=== PATIENT | female | born 2000 | race Caucasian/White ===

== ENCOUNTER 2021-04-25 21:47 | Outpatient (CLI) | payer MEDICAID ==
[2021-04-25 22:22] VITALS: BP 97/52
[2021-04-25] MEDS ORDERED: ACETAMINOPHEN 500 MG TAB PO ONE (23:41)
== END 2021-04-25 23:41 | disposition home or self-care (01) ==
LOC: TRG 21:47 → APU 21:51 → TRG 23:41
PROVIDERS: ATTEND Obstetrics & Gynecology
DX: Z34.93 Encounter for supervision of normal pregnancy, unspecified, third trimester (principal); Z3A.40 40 weeks gestation of pregnancy
CPT/HCPCS: 59025; Q0177

== ENCOUNTER 2021-04-26 07:45 | Inpatient (IN) | payer MEDICAID ==
[2021-04-26] MEDS ORDERED: METHYLERGONOVINE MALEATE 0.2 MG/ML VIAL IM PRN (08:14)
[2021-04-26] MEDS ORDERED: TERBUTALINE 1 MG/1 ML INJ SUB-Q PRN (08:14)
[2021-04-26] MEDS ORDERED: OXYTOCIN 10 UNIT/1 ML INJ IM PRN (08:14)
[2021-04-26] MEDS ORDERED: LIDOCAINE (2%) 20 MG/1 ML VIAL 20 ML MDV INFILTRATI ONE (08:14)
[2021-04-26] MEDS ORDERED: CARBOPROST TROMETHAMINE 250 MCG/1 ML INJ IM PRN (08:14)
[2021-04-26] MEDS ORDERED: ACETAMINOPHEN 325 MG TAB PO PRN (08:14)
[2021-04-26] MEDS ORDERED: miSOPROStol 200 MCG TAB PR PRN (08:14)
[2021-04-26] MEDS ORDERED: LOPERAMIDE 2 MG CAP PO PRN (08:14)
[2021-04-26] MEDS ORDERED: fentaNYL 100 MCG/2 ML INJ IV PRN (08:14)
[2021-04-26] MEDS ORDERED: ePHEDrine SULFATE 50 MG/1 ML INJ IV PRN (08:14)
[2021-04-26] MEDS ORDERED: BUTORPHANOL 2 MG/1 ML INJ IV PRN (08:14)
[2021-04-26] MEDS ORDERED: AMPICILLIN/NS 2 GM/100 ML 2 GM/100 ML BAG IV ONE (08:25)
[2021-04-26] MEDS: LACTATED RINGERS 1,000 ML IV SCH ×3 (08:41→14:50)
[2021-04-26] MEDS ORDERED: MINERAL OIL 30 ML ORAL LIQD ONE (08:52)
[2021-04-26] MEDS ORDERED: OXYTOCIN DRIP 30 UNITS/500 ML BAG IV SCH ×3 (09:00→21:59)
[2021-04-26 09:03] LABS: Hematocrit 39.5 % (30.3-42.9); Hemoglobin 13.1 gm/dl (10.1-14.3); Mean Corpuscular HGB Conc 33 % (30-34); Mean Corpuscular Volume 87 fl (79-97); Platelet Count 211 K/mm3 (140-440); Red Blood Count 4.52 M/mm3 (3.65-5.03); Red Cell Distribution Width 16.8 % (13.2-15.2)
--- NOTE | 2021-04-26 09:03 | History and Physical Report ---
History of Present Illness Date of examination: 04/26/21 Date of admission: 04/26/21 Chief complaint: contractions and desires for epidural History of present illness: EDC 04/25/21 negative past medical, surgical, social, and genetic histories Family history of diabetes in her father, and cervical cancer in her mother negative alcohol, drug use, and smoking histories Pt is single NKA and no current medications being taken Past History Past Medical History: no pertinent history, other (see HPI) Past Surgical History: no surgical history, other (see HPI) [employer] History: other (see HPI). denies: herpes Family/Genetic History: diabetes, cancer, other (see HPI) Social history: no significant social history, single, other (see HPI). denies: smoking, alcohol abuse, prescription drug abuse, IV drug use - Obstetrical History Expected Date of Delivery: 04/25/21 Actual Gestation: 40 Week(s) 1 Day(s) : 1 Para: 0 Hx # Term Pregnancies: 0 Number of Pregnancies: 0 Spontaneous Abortions: 0 Induced : 0 Number of Living Children: 0 Medications and Allergies Allergies Allergy/AdvReac Type Severity Reaction Status Date / Time No Known Allergies Allergy Unverified 04/26/21 08:00 Home Medications Medication Instructions Recorded Confirmed Last Taken Type RX: No Known Home Medications [No 04/25/21 04/26/21 Unknown History Reported Home Medications] Active Meds: Active Medications Acetaminophen (Acetaminophen 325 Mg Tab) 650 mg PO Q4H PRN PRN Reason: Pain, Mild (1-3) Butorphanol Tartrate (Butorphanol 2 Mg/1 Ml Inj) 1 mg IV Q2H PRN PRN Reason: Pain, Moderate(4-6) LABOR PAIN Carboprost Tromethamine (Carboprost Tromethamine 250 Mcg/1 Ml Inj) 250 mcg IM ONCE PRN PRN Reason: Uterine Bleeding Ephedrine Sulfate (Ephedrine Sulfate 50 Mg/1 Ml Inj) 10 mg IV Q2M PRN PRN Reason: Hypotension Fentanyl (Fentanyl 100 Mcg/2 Ml Inj) 100 mcg IV Q2H PRN PRN Reason: Pain,Severe (7-10) LABOR PAIN Oxytocin/Sodium Chloride (Pitocin/Ns 30 Unit/500ml) 30 units in 500 mls @ 2 mls/hr IV TITR JAVI; Protocol Lactated Ringer's (Lactated Ringers) 1,000 mls @ 125 mls/hr IV DIRECT JAVI Last Admin: 04/26/21 08:41 Dose: 125 mls/hr Oxytocin/Sodium Chloride (Pitocin/Ns 30 Unit/500ml) 30 units in 500 mls @ 40 mls/hr IV TITR JAVI; Protocol Ampicillin Sodium (Ampicillin/Ns 2 Gm/100 Ml) 2 gm in 100 mls @ 100 mls/hr IV ONCE ONE; Protocol Stop: 04/26/21 09:24 Last Admin: 04/26/21 08:41 Dose: 100 mls/hr Ampicillin Sodium (Ampicillin/Ns 1 Gm/50 Ml) 1 gm in 50 mls @ 100 mls/hr IV Q4HR JAVI; Protocol Loperamide HCl (Loperamide 2 Mg Cap) 2 mg PO ONCE PRN PRN Reason: give with Hemabate Methylergonovine Maleate (Methylergonovine Maleate 0.2 Mg/Ml Vial) 0.2 mg IM ONCE PRN PRN Reason: Uterine Bleeding Mineral Oil (Mineral Oil 30 Ml Oral Liqd) 30 ml PO QHS PRN PRN Reason: Constipation Misoprostol (Misoprostol 200 Mcg Tab) 800 mcg VA ONCE PRN PRN Reason: Uterine Bleeding Oxytocin (Oxytocin 10 Unit/1 Ml Inj) 10 unit IM ONCE PRN PRN Reason: Uterine Bleeding Terbutaline Sulfate (Terbutaline 1 Mg/1 Ml Inj) 0.25 mg SUB-Q ONCE PRN PRN Reason: Hyperstimulation/Hypertonicity Review of Systems All systems: negative Genitourinary: contractions, no vaginal bleeding, no leakage of fluid - Vital Signs Vital signs: Vital Signs Pulse Pulse Ox 79 98 04/26/21 08:06 04/26/21 08:06 Temp Pulse Resp BP Pulse Ox 97.5 F L 82 18 106/72 99 04/26/21 08:10 04/26/21 09:00 04/26/21 08:10 04/26/21 08:10 04/26/21 09:00 - Physical Exam Breasts: Positive: deferred Cardiovascular: Regular rate Lungs: Positive: Normal air movement Abdomen: Positive: normal appearance, soft. Negative: distention, tenderness, guarding Genitourinary (Female): Positive: normal external genitalia, normal perenium Vulva: both: normal Vagina: Positive: normal moisture Uterus: Positive: normal size, normal contour, other (gravid at term) Anus/Rectum: Positive: normal perianal skin, heme negative Extremities: Positive: normal - Obstetrical FHR: auscultation normal, category 1 Uterine Contraction Monitor Mode: External Cervical Dilatation: 8 Cervical Effacement Percentage: 90 station: 0 Uterine Contraction Frequency (min): 2-4 Uterine Contraction Pattern: Regular Uterine Tone Measurement Phase: Resting Results Result Diagrams: 04/26/21 08:20 All other labs normal. GBS POSITIVE Chlamydia negative Gonococcus negative Trich negative labs on 01/09/21: A+ HBsAG negative RPR nonreactive RUBELLA NON-IMMUNE H&H Platelets 261 HIV nonreactive HCV Ab negative Assessment and Plan Pt reports desires for epidural. SVE performed with BBOW, cephalic presentation. RN at bedside. Admission orders in EMR. Pt may have epidural, continuous efm and toco, anticipate . - Patient Problems (1) 40 weeks gestation of Current Visit: Yes Status: Acute (2) Rubella non-immune status, antepartum Current Visit: Yes Status: Acute Plan to address problem: offer vaccine (3) GBS carrier Current Visit: Yes Status: Acute Plan to address problem: Ampicillin q4hrs until delivery
[2021-04-26] MEDS ORDERED: LACTATED RINGERS 250 ML IV SOLN IV ONE (09:38)
[2021-04-26] MEDS ORDERED: diphenhydrAMINE 50 MG/ML VIAL IV PRN (09:38)
[2021-04-26] MEDS ORDERED: NalbUPHINE 10 MG/1 ML INJ IV PRN (09:38)
[2021-04-26] MEDS ORDERED: NALOXONE 2 MG/2 ML INJ IV PRN (09:38)
[2021-04-26] MEDS ORDERED: ONDANSETRON 4 MG/2 ML INJ IV PRN ×3 (09:38→21:59)
--- NOTE | 2021-04-26 09:59 | Anesthesia Consultation ---
Anesthesia Consult and Med Hx Date of service: 04/26/21 - Airway Anesthetic Teeth Evaluation: Good ROM Head & Neck: Adequate Mental/Hyoid Distance: Adequate Mallampati Class: Class II Intubation Access Assessment: Probably Good - Pulmonary Exam CTA: Yes - Cardiac Exam Cardiac Exam: RRR - Pre-Operative Health Status ASA Pre-Surgery Classification: ASA2 Proposed Anesthetic Plan: Epidural - Pulmonary Hx Smoking: No Hx Asthma: No Hx Sleep Apnea: No - Cardiovascular System Hx Hypertension: No Hx Heart Attack/AMI: No Hx Angina: No - Central Nervous System Hx Seizures: No Hx Psychiatric Problems: No - Gastrointestinal Hx Gastroesophageal Reflux Disease: No - Endocrine Hx Renal Disease: No Hx Liver Disease: No Hx Insulin Dependent Diabetes: No Hx Non-Insulin Dependent Diabetes: No Hx Hypothyroidism: No Hx Hyperthyroidism: No - Hematic Hx Anemia: No Hx Sickle Cell Disease: No - Other Systems Hx Alcohol Use: No
[2021-04-26] MEDS ORDERED: AMPICILLIN/NS 1 GM/50 ML 1 GM/50 ML BAG IV SCH (10:00)
--- NOTE | 2021-04-26 10:00 | Progress Note ---
Labor Epidural - Labor Epidural Start Time: 09:45 Stop Time: 10:00 Performed by:: DEBBIE DRUMMOND ([facility]) Procedure: Patient is requesting epidural for labor and pain. H&P, labs were reviewed. Patient IDed, all questions and concerns were answered, and consent was signed. Timeout was performed at bedside. Patient in sitting position. Sterile prep and drape was performed. 3ml of 1% lidocaine skin wheal at L[3]- L [4]. 17-ga uge Tuohy epidural needle was advanced to loss of resistance with air technique 7cm. Negative CSF negative blood. Epidural catheter advanced to [12] centimeters. [negative] Aspiration [negative] test dose. Sterile dressing applied. Patient tolerated procedure.
[2021-04-26] MEDS: ePHEDrine SULFATE 50 MG/1 ML INJ IV PRN ×4 (10:12→18:50)
[2021-04-26] MEDS: fentaNYL-BUPIV 2 MCG/ML-0.125% 200 MCG/100 ML BAG EPIDURAL SCH ×2 (11:40→15:41)
[2021-04-26] MEDS ORDERED: SODIUM CHLORIDE 0.9% 1000 ML 1,000 ML ONE (14:47)
--- NOTE | 2021-04-26 15:01 | Event Note ---
Date: 04/26/21 FHT's strip reviewed and discussed with pt and RN at bedside. SVE performed and unchanged from 1100 assessment. Per RN, possible SROM of forebag with meconium stained fluid. POC d/w pt with risks vs benefits of augmentation with Pitocin, AROM of bulging bag, placement of internal monitors, and administration of amnioinfusion. Questions encouraged. No questions verbalized. Pt verbalizes understanding and agrees to POC. AROM performed, moderate meconium stained fluid noted, internal monitors placed without difficulty. D/w pt risks with meconium and expectations post delivery. Dr Antonio made aware. T's strip reviewed by . Orders received for informed consent of pt; delivery with risks discussed with pt. Questions encouraged. No questions or concerns verbalized. Pt verbalizes understanding. Pitocin turned off. Orders placed for preop.
[2021-04-26] MEDS ORDERED: BICITRA ORAL LIQD 30ML ONE (15:16)
[2021-04-26] MEDS ORDERED: METOCLOPRAMIDE 10 MG/2 ML INJ ONE (15:17)
[2021-04-26] MEDS ORDERED: NALOXONE 0.4 MG/1 ML INJ IV PRN ×2 (15:18→21:59)
[2021-04-26] MEDS ORDERED: HYDROmorphone 1 MG/1 ML INJ IV PRN (15:18)
[2021-04-26] MEDS ORDERED: PROMETHAZINE 25 MG RECT SUPP PR PRN (15:18)
[2021-04-26] MEDS ORDERED: PROMETHAZINE 25 MG TAB PO PRN (15:18)
--- NOTE | 2021-04-26 15:19 | Anesthesia Day of Surgery ---
Anesthesia Day of Surgery - Day of Surgery Patient Examined: Yes Patient H&P Reviewed: Yes Patient is NPO: Yes Beta Blockers: No Cardiac Clearance: No Pulmonary Clearance: No Juan's Test: N/A
[2021-04-26] MEDS ORDERED: LACTATED RINGERS 1,000 ML IV SCH (16:00)
[2021-04-26] MEDS ORDERED: METOCLOPRAMIDE 10 MG/2 ML INJ IV ONE (16:00)
[2021-04-26] MEDS ORDERED: BICITRA ORAL LIQD 30ML PO ONE (16:00)
[2021-04-26] MEDS ORDERED: ceFAZolin/Water 2 GM/20 ML 2 GM/20 ML SYRINGE IV NR (16:00)
[2021-04-26] MEDS ORDERED: FAMOTIDINE 20 MG/2 ML INJ IV ONE (16:00)
--- NOTE | 2021-04-26 16:24 | Event Note ---
Date: 04/26/21 Indication for section discussed. Patient informed the risks of the surgery include bleeding possibly bleeding heavy enough to require blood transfusion, infection possible damage to bowel bladder ureter. All questions answered. Patient agrees to proceed
[2021-04-26] MEDS ORDERED: SODIUM CHLORIDE 0.9% IRR 1,500 ML BOTTLE IR ONE (16:30)
[2021-04-26] MEDS ORDERED: WATER FOR IRRIG STERILE 1,500 ML BOTTLE IR ONE (16:31)
--- NOTE | 2021-04-26 17:40 | Operative Report ---
Operative Report Operative Report: Date of procedure: April 26, 2021 Pre-operative diagnosis: Intrauterine at [address] ained fluid arrest of dilatation and descent with nonreassuring heart tracing Post-operative diagnosis: Same Procedure name(s): Primary low-transverse section Surgeon: Tyshawn Antonio MD Book Reviewer: JERI Anesthesia: Epidural EBL: Quantitative blood loss equals 784 cc Complications: None Findings: Patient with a normal uterus tubes and ovaries bilaterally. Male weight 6 pounds 13 ounces Apgars 8 at 1 minute and 9 at 5 minutes Specimen(s): None Procedure: The patient was brought to the operating room. Her epidural was dosed was placed without any complications. She was then placed in left lateral tilt. Prepped and draped in the usual sterile manner. After testing for adequate anesthesia level, a Pfannenstiel incision was made. This incision was taken down to the fascia. The fascia was then nicked in the midline. This incision was extended out laterally with Purdy scissors. The fascia was then sharply and bluntly from the underlying rectus muscles. The rectus muscles were bluntly and sharply . The peritoneum was then entered with the pig machine operator helper's fingers. This incision was spread vertically with care not to damage the bladder below. The Luis E self-retaining tractor was then placed without any difficulty. The bladder flap was then formed sharply and bluntly with Metzenbaum scissors. A transverse incision was made in lower uterine segment. This incision was extended laterally with the operators fingers. The amniotic sac was then entered bluntly with the pig machine operator helper's fingers. The was delivered from the vertex position. Bulb suction on the mother's abdomen. Cord was double clamped and cut. The was then passed to the nursery personnel who were in attendance. The above scores were given by the nursery personnel. The placenta was then bluntly removed. The uterus was then externalized and wiped clean the remaining products. The uterine incision was closed in layers. The first incision was closed in a locking manner using 0 Vicryl. This was followed by imbricating stitch also with 0 Vicryl. This closure was hemostatic after additional [id number] suture. The bladder flap was copiously irrigated and found to be hemostatic. The pelvis was copiously irrigated and found to be hemostatic. The uterus was then placed back to the patient's abdomen. Surgicel was placed along the uterine closure line. The retractors were removed. The rectus muscles were inspected and found to be hemostatic. The fascia was then closed in a running manner using 0 Vicryl. This incision was hemostatic irrigation Bovie. The skin was reapproximated with 4-0 Vicryl subcuticularly. Dermabond in place along the skin closure. The patient tolerated procedure well. Her urine was clear. The infant was admitted to the well baby nursery. The patient was accompanied to recovery room in good condition. Instrument count correct times 3.
[2021-04-26] MEDS ORDERED: MAGNESIUM HYDROXIDE (MOM) ORAL LIQD UDC PO PRN (21:59)
[2021-04-26] MEDS ORDERED: SIMETHICONE 80 MG CHEW TAB PO PRN (21:59)
[2021-04-26] MEDS ORDERED: HYDROCORTISONE 25 MG RECTAL SUPP PR PRN (21:59)
[2021-04-26] MEDS ORDERED: HYDROcodone/ACETAMINOPHEN 5-325 MG TAB PO PRN (21:59)
[2021-04-26] MEDS ORDERED: WITCH HAZEL/ GLYCERIN PAD TP PRN (21:59)
[2021-04-26] MEDS ORDERED: D5W/LACTATED RINGERS 1,000 ML IV SCH (21:59)
[2021-04-26] MEDS ORDERED: LANOLIN/ZINC/DIMETHICONE (LANSINOH) 7 GM TP PRN (21:59)
[2021-04-26] MEDS ORDERED: SENNOSIDES 8.6 MG TAB PO PRN (21:59)
[2021-04-26] MEDS ORDERED: MINERAL OIL 30 ML ORAL LIQD PO PRN (22:00)
[2021-04-26] MEDS: KETOROLAC 30 MG/1 ML INJ IV SCH (22:30)
[2021-04-27] MEDS: ceFAZolin/NS 1 GM/50 ML 1 GM/50 ML BAG IV SCH ×2 (00:21→08:23)
[2021-04-27] MEDS: KETOROLAC 30 MG/1 ML INJ IV SCH ×2 (05:29→10:16)
[2021-04-27] MEDS ORDERED: MEASLES, MUMPS & RUBELLA 12,500 UNIT/0.5 ML VACCINE SUB-Q ONE (06:00)
[2021-04-27] MEDS ORDERED: TETANUS,DIPH,PERTUSS(ACELL) VACCINE 0.5 ML SYRINGE IM ONE (06:00)
[2021-04-27 07:22] LABS: Hematocrit 27.4 % (30.3-42.9); Hemoglobin 9.4 gm/dl (10.1-14.3)
[2021-04-27] MEDS: PRENATAL VIT27-FE FUMARATE-FOLIC ACID VIT TAB PO SCH (10:16)
[2021-04-27] MEDS: FERROUS SULFATE 325 MG TAB PO SCH (10:16)
--- NOTE | 2021-04-27 13:21 | Progress Note ---
Assessment and Plan VSSAF; postop H&H 11/18 s/p acute blood loss. Pt reports ambulating, eating, and voiding without difficulties. Incentive spirometer at bedside, pt encouraged in postoperative pathway expectations. Discharge precautions reviewed. Anticipate stable d/c home tomorrow. - Patient Problems (1) Rubella non-immune status, antepartum Current Visit: Yes Status: Acute Plan to address problem: vaccine ordered (2) delivery delivered Current Visit: Yes Status: Acute Subjective - Subjective Date of service: 04/27/21 Principal diagnosis: POD#1 Patient reports: appetite normal, voiding normally, pain well controlled, ambulating normally : doing well Objective - Vital Signs Latest vital signs: Vital Signs Temp Pulse Resp BP BP Pulse Ox Pulse Ox 04/27/21 08:31 98.5 F 70 20 93/54 97 04/27/21 08:25 97 04/27/21 05:30 98 04/27/21 04:55 97.9 F 84 18 104/54 97 04/27/21 04:15 98 04/27/21 02:20 98 04/27/21 00:40 98.2 F 57 L 18 98/52 97 04/27/21 00:19 98 04/26/21 22:30 98 04/26/21 21:00 98.2 F 96 H 18 109/56 98 99 04/26/21 19:56 97 04/26/21 18:45 88 19 102/55 96 04/26/21 18:25 81 22 97/52 96 04/26/21 18:10 76 17 93/53 96 04/26/21 17:55 81 18 93/53 96 04/26/21 17:40 76 19 101/53 97 04/26/21 17:35 63 17 106/66 04/26/21 17:30 87 18 94/57 04/26/21 17:25 98.5 F 75 15 97/56 04/26/21 15:25 100 H 99 04/26/21 15:20 137 H 97 04/26/21 15:18 84 107/63 04/26/21 15:15 135 H 98 04/26/21 15:10 119 H 97 04/26/21 15:05 121 H 96 04/26/21 15:02 134 H 102/57 04/26/21 15:00 97.4 F L 120 H 97 04/26/21 14:55 135 H 97 04/26/21 14:50 77 97 04/26/21 14:47 121 H 111/56 04/26/21 14:45 137 H 96 04/26/21 14:42 99 H 115/69 04/26/21 14:40 120 H 98 04/26/21 14:35 129 H 98 04/26/21 14:32 123 H 86/47 04/26/21 14:30 88 98 04/26/21 14:25 81 98 04/26/21 14:20 85 116/68 98 04/26/21 14:18 120 H 79/43 04/26/21 14:15 72 97 04/26/21 14:10 76 97 04/26/21 14:05 144 H 96 04/26/21 14:02 112 H 98/55 04/26/21 14:00 94 H 97 04/26/21 13:55 130 H 98 04/26/21 13:53 105 H 109/59 04/26/21 13:50 117 H 96 04/26/21 13:47 113 H 87/50 04/26/21 13:45 78 97 04/26/21 13:40 120 H 96 04/26/21 13:35 129 H 97 04/26/21 13:34 88 103/59 04/26/21 13:30 81 97 04/26/21 13:25 107 H 97 04/26/21 13:20 99 H 97 04/26/21 13:17 134 H 95/54 Intake and Output 04/26/21 04/27/21 04/27/21 23:59 07:59 15:59 Intake Total 1720 410 120 Output Total 275 1500 Balance 1445 -1090 120 Intake: IV 1600 50 ANCEF/NS 1 GM/50 ML 1 gm 50 In 50 ml @ 100 mls/hr IV Q8H [facility] Rx#:[id number] Oral 120 360 120 Output: Urine 275 1500 Indwelling Catheter 1000 Void 500 Other: Total, Intake Amount 120 120 120 Total, Output Amount 500 # Voids Void 1 - Exam Breasts: Present: normal Cardiovascular: Present: Regular rate Lungs: Present: Normal air movement Abdomen: Present: normal appearance, soft. Absent: distention, tenderness, guarding Uterus: Present: normal, firm Extremities: Present: normal Incision: Present: normal, dry, intact - Labs Labs: Abnormal lab results 04/27/21 Range/Units 07:02 Hgb 9.4 L D (10.1-14.3) gm/dl Hct 27.4 L D (30.3-42.9) %
--- NOTE | 2021-04-27 15:34 | Post Anesthesia Evaluation ---
- Post Anesthesia Evaluation Patient Participated: Yes Airway Patent: Yes Stable Respiratory Function: Yes Nausea/Vomiting: No Temp > 96.8F: Yes Pain Manageable: Yes Adequeate Hydration: Yes Anesthesia Complications: No Block Receding Appropriately: Yes Patient on Ventilator: No
[2021-04-27] MEDS: IBUPROFEN 600 MG TAB PO PRN (18:15)
[2021-04-27 19:40] LABS: Hematocrit 25.8 % (30.3-42.9)
[2021-04-28] MEDS: IBUPROFEN 600 MG TAB PO PRN ×3 (00:04→12:52)
--- NOTE | 2021-04-28 08:29 | Discharge Summary ---
Providers - Providers Date of Admission: 04/26/21 07:46 Date of discharge: 04/28/21 Attending physician: KAYLA FRANCO 04/26/21 21:59 Consult to Geothermal Production Manager [CONS] Routine Reason For Exam: Primary care physician: KAYLA FRANCO Hospitalization Reason for admission: active labor Delivery: Procedure: primary low transverse Episiotomy: none Laceration: none Incision: normal, dry, intact Other procedures: none complications: none Discharge diagnosis: IUP at term delivered baby: male Pertinent studies: Does not want circumcision at this time. Hospital course: S: Pt doing well. Voiding, ambulating, and passing flatus okay. O: VSS. Adequate I&O's. H/H 9.0/25.8, asymptomatic anemia from delivery. Incision open to air, intact, no s/sx of infection and no drainage noted. A: 20 y.o. s/p primary . In good condition. P: Discharge home with instructions. Pt to schedule incision check in the office in 1 week. Condition at discharge: Good Disposition: 01 HOME / SELF CARE / HOMELESS Plan - Discharge Medications Prescriptions: Docusate Sodium [Colace] 100 mg PO BID PRN #60 capsule PRN Reason: Constipation Lidocain2.5%/Prilocai2.5% [Emla] 5 gm TP ONCE #1 tube Ferrous Sulfate [Feosol 325 MG tab] 325 mg PO QDAY #30 tablet Ibuprofen [Motrin] 800 mg PO TID PRN #30 tablet PRN Reason: Pain oxyCODONE /ACETAMINOPHEN [Percocet 5/325 mg] 1 tab PO Q6HR PRN #20 tablet PRN Reason: Pain Vit-Fe Fumar-FA [ Vitamin] 1 tab PO QDAY #90 tablet - Provider Discharge Summary Activity: routine, no sex for 6 weeks, no heavy lifting 4 weeks, no strenuous exercise Diet: routine Instructions: routine Additional instructions: [] Smoking cessation referral if applicable(refer to patient education folder for contact #) [] Refer to [facility] Booklet Call your doctor immediately for: * Fever > 100.5 * Heavy vaginal bleeding ( >1 pad per hour) * Severe persistent headache * Shortness of breath * Reddened, hot, painful area to leg or breast * Drainage or odor from incision. * Keep incision clean and dry at all times and follow doctor's instructions regarding bathing/showering - Follow up plan Follow up: KAYLA FRANCO MD [Primary Care Provider] - 7 Days (Congratulations on the of your baby boy!! Please schedule your incision check in the office in 1 week. Should you have any questions or concerns after discharge, please call the office at [phone]. ) Forms: [facility] Discharge Summary
[2021-04-28] MEDS: PRENATAL VIT27-FE FUMARATE-FOLIC ACID VIT TAB PO SCH (10:16)
[2021-04-28] MEDS: FERROUS SULFATE 325 MG TAB PO SCH (10:16)
[2021-04-28 17:11] VITALS: BP 95/56
== END 2021-04-28 18:48 | disposition home or self-care (01) | DRG 766 ==
LOC: TRG 07:45 → LD 07:46 → APU 07:46 → OBSVTOIN 07:46 → TRG 08:14 → LD 08:39 → OB 20:40
PROVIDERS: ADMIT Obstetrics & Gynecology; ATTEND Obstetrics & Gynecology
PROC: 10D00Z1 Extraction of Products of Conception, Low, Open Approach (ICD-10-PCS; principal; 2021-04-26)
PROC: 3E0234Z Introduction of Serum, Toxoid and Vaccine into Muscle, Percutaneous Approach (ICD-10-PCS; 2021-04-27)
DX: O76 Abnormality in fetal heart rate and rhythm complicating labor and delivery (principal); O77.0 Labor and delivery complicated by meconium in amniotic fluid; Z3A.40 40 weeks gestation of pregnancy; Z37.0 Single live birth; Z20.822 Contact with and (suspected) exposure to COVID-19; Z23 Encounter for immunization; O99.824 Streptococcus B carrier state complicating childbirth
CPT/HCPCS: 36415; 59025; 85014; 85018; 85027; 86592; 86850; 86900; 86901; 96360; 99211; G0378; J3490; J7060; Q0162; G0463; J0290; J0690; J1885; J2210; J2590; J7030; J7120; J7121; Q0177; U0003